=== PATIENT | female | born 1995 | race African-American/Black ===

== ENCOUNTER 2017-08-20 07:45 | Emergency (ER) | payer OTHER ==
[2017-08-20 08:00] VITALS: BP 112/69
[2017-08-20] MEDS ORDERED: DEXAMETHASONE 10 MG/ML VIAL PO STA (09:08)
--- NOTE | 2017-08-20 09:08 | ED Physician Documentation ---
PD HPI HEENT - Stated complaint Stated Complaint: SORE THROAT - Chief complaint Chief Complaint: General - History obtained from History obtained from: Patient - History of Present Illness Timing - onset: How many days ago (1) Timing - duration: Days (1) Timing - details: Gradual onset, Still present Location: Throat Improves: Medication Worsens: [place] Associated symptoms: Congestion, Rhinorrhea, Headache, Cough Similar symptoms before: Has not had sx before Recently seen: Clinic - Additional information Additional information: 22-year-old female was previously well she had injections done for pre- deployment including anthrax and typhoid immunizations. The following morning she woke with a sore throat and she continues to have sore throat which was not improved with [id number] medications. She was asked to come to the emergency department by medical at [facility] [place]. Review of Systems Constitutional: denies: Fever Eyes: denies: Decreased vision Ears: denies: Ear pain Nose: reports: Rhinorrhea / runny nose, Congestion, Sinus pressure / pain Throat: reports: Sore throat Cardiac: denies: Chest pain / pressure, Palpitations Respiratory: reports: Cough. denies: Dyspnea GI: denies: Abdominal Pain, Nausea, Vomiting : denies: Dysuria, Frequency PD PAST MEDICAL HISTORY - Past Medical History Past Medical History: No - Present Medications Home Medications: Ambulatory Orders Medication Instructions Recorded Confirmed Azithromycin [Zithromax] 250 mg PO DAILY #6 tablet 08/20/17 - Social History Does the pt smoke?: No Smoking Status: Never smoker PD ED PE NORMAL - Vitals Vital signs reviewed: Yes (tachy ) - General General: Alert and oriented X 3, No acute distress, Well developed/nourished - HEENT HEENT: Atraumatic, PERRL, EOMI, Other (inflamation to the right TM with rounding of the umbo on the right. ) - Neck Neck: Supple, no meningeal sign, No bony TTP - Cardiac Cardiac: RRR, No murmur - Respiratory Respiratory: No respiratory distress, Clear bilaterally - Abdomen Abdomen: Soft, Non tender - Back Back: No CVA TTP, No spinal TTP - Derm Derm: Normal color, Warm and dry, No rash - Extremities Extremities: No deformity, No edema - Neuro Neuro: No motor deficit, No sensory deficit Eye Opening: Spontaneous Motor: Obeys Commands Verbal: Oriented GCS Score: 15 - Psych Psych: Normal mood, Normal affect Results - Vitals Vitals: Vital Signs - 24 hr 08/20/17 07:54 Temperature 36.3 C L Heart Rate 105 H Respiratory 22 Rate Blood Pressure 112/69 O2 Saturation 100 Oxygen O2 Source Room air - Labs Labs: Laboratory Tests 08/20/17 09:05 Group A Strep Rapid Negative PD MEDICAL DECISION MAKING - ED course Complexity details: reviewed results, re-evaluated patient, considered differential, d/w patient ED course: 22 y/o female with a sore throat the day after administration of anthrax and typhoid immunizations. Neither of these lists pharyngitis as a side effect. She does have OM on exam and this is treated and is likely the cause of her sore throat. Departure - Departure Disposition: 01 Home, Self Care Clinical Impression: Otitis media Qualifiers: Otitis media type: suppurative Chronicity: acute Laterality: right Recurrence: not specified as recurrent Spontaneous tympanic membrane rupture: without spontaneous rupture Qualified Code(s): H66.001 - Acute suppurative otitis media without spontaneous rupture of ear drum, right ear Instructions: ED Otitis Media Acute Adult Follow-Up: [facility] [Provider Group] Prescriptions: Azithromycin [Zithromax] 250 mg PO DAILY #6 tablet Discharge Date/Time: 08/20/17 09:37
== END 2017-08-20 09:37 | disposition home or self-care (01) ==
LOC: ED 07:45
DX: J34.89 Other specified disorders of nose and nasal sinuses (principal); R05 Cough; H66.001 Acute suppurative otitis media without spontaneous rupture of ear drum, right ear; J02.9 Acute pharyngitis, unspecified
CPT/HCPCS: 87070; 87430; 99283